=== PATIENT | male | born 1995 | race Hispanic/Latino ===

== ENCOUNTER 2023-12-09 09:39 | Outpatient (CLI) | payer BC | END 2023-12-09 09:40 | disposition home or self-care (01) | LOC: CSHRAD 09:39 | PROVIDERS: ATTEND Chiropractor | DX: S96.912A Strain of unspecified muscle and tendon at ankle and foot level, left foot, initial encounter (principal) ==

== ENCOUNTER 2024-02-03 10:49 | Outpatient (CLI) | payer OTHER, BC | END 2024-02-03 10:50 | disposition home or self-care (01) | LOC: CSHULT 10:49 | PROVIDERS: ATTEND Internal Medicine Gastroenterology | DX: R19.4 Change in bowel habit (principal); R10.13 Epigastric pain; R74.8 Abnormal levels of other serum enzymes; K76.0 Fatty (change of) liver, not elsewhere classified | CPT/HCPCS: 76705 ==